=== PATIENT | female | born 1965 | race Caucasian/White ===

== ENCOUNTER 2021-11-21 17:51 | Emergency (ER) | payer BC ==
[~2021-11-21] VITALS: Ht 167.6 cm; Wt 82.0 kg
[2021-11-21] MEDS ORDERED: BENADRYL25 M1 PO (18:58)
[2021-11-21] MEDS ORDERED: EPIPEN 2-P0.3 MG/0.3 IM (18:58)
[2021-11-21 19:24] VITALS: BP 171/85
== END 2021-11-21 19:35 | disposition home or self-care (01) | DRG 918 ==
LOC: ED 17:51
DX: T63.441A Toxic effect of venom of bees, accidental (unintentional), initial encounter (principal); E11.9 Type 2 diabetes mellitus without complications